=== PATIENT | male | born 1950 | race Caucasian/White ===

== ENCOUNTER 2022-01-06 10:16 | Day surgery (SDC) | payer MEDICARE, OTHER ==
[2021-12-30 14:41] LABS: BASOPHILS % (AUTO) 0.2 % (0-1); EOSINOPHILS # (AUTO) 0.3 X10'3 (0-0.9); EOSINOPHILS % (AUTO) 2.7 % (0-6); LYMPHOCYTES # (AUTO) 2.2 X10'3 (1.1-4.8); LYMPHOCYTES % (AUTO) 23.4 % (21-51); MEAN CORPUSCULAR HEMOGLOBIN 31.7 PG (27.0-31.0); MEAN CORPUSCULAR HGB CONC 33.2 g/dL (33.0-36.5); MEAN CORPUSCULAR VOLUME 95.5 FL (78-98); MEAN PLATELET VOLUME 7.1 FL (7.4-10.4); MONOCYTES # (AUTO) 0.7 X10'3 (0-0.9); MONOCYTES % (AUTO) 8.1 % (2-12); NEUTROPHILS % (AUTO) 65.6 % (42-75); PRE OP HEMATOCRIT 40.9 % (42.0-52.0); PRE OP HEMOGLOBIN 13.6 g/dL (14.0-17.9); PRE OP PLATELET COUNT 318 X10'3 (140-440); RED BLOOD COUNT 4.29 X10'6 (4.70-6.10); RED CELL DISTRIBUTION WIDTH 13.6 % (11.5-14.5)
[2021-12-30 14:48] LABS: ALBUMIN 3.4 G/DL (3.4-5.0); ALBUMIN/GLOBULIN RATIO 0.9 (1.1-1.5); ALKALINE PHOSPHATASE 69 IU/L (46-116); BLOOD UREA NITROGEN 20 MG/DL (7-18); BUN/CREATININE RATIO 26.3 (5.4-32.0); CHLORIDE 105 MMOL/L (99-107); CREATININE 0.76 MG/DL (0.60-1.10); PRE OP ALT 34 U/L (30-65); PRE OP ANION GAP 8 (8-16); PRE OP AST 25 U/L (10-37); PRE OP BILIRUB, TOTAL 0.5 MG/DL (0.0-1.0); PRE OP GLUCOSE 101 MG/DL (70-104); PRE OP POTASSIUM 4.1 MMOL/L (3.4-5.1); PRE OP SODIUM 142 MMOL/L (135-145); TOTAL CARBON DIOXIDE 29.5 MMOL/L (24-32); TOTAL PROTEIN 7.4 G/DL (6.4-8.2); eGFR > 90 ML/MIN
[2022-01-06] VITALS (13 sets, daily range): BP systolic 97–123; BP diastolic 56–77
[~2022-01-06] VITALS: Ht 152.4 cm; Wt 8.0 kg
[~2022-01-06 10:16] MED LIST: ATOR20TA66 PO; PANT40TA54 PO; ceFAZolin inj. 2,000 MG in dextrose 5%-water 100 ML IV ONE; famotidine 20mg tablet PO ONE; ringers solution, lacted 1,000 ML IV SCH
[2022-01-06] MEDS ORDERED: meperidine/PF 25mg/ml syringe IV PRN ×2 (10:55)
[2022-01-06] MEDS ORDERED: ringers solution, lacted 1,000 ML IV SCH (10:55)
[2022-01-06] MEDS ORDERED: fentaNYL/PF 50MCG/1 ML 2ML syringe IV PRN ×2 (10:55)
[2022-01-06] MEDS ORDERED: labetalol 20mg/4ml (5mg/ml) syringe IV PRN (10:55)
[2022-01-06] MEDS ORDERED: ondansetron/PF 4mg/2ml inj IV PRN (10:55)
[2022-01-06] MEDS ORDERED: hydrALAZINE 20mg/ml inj. IV PRN (10:55)
[2022-01-06] MEDS ORDERED: LIDOcaine 1% 30ml preserv. free vial ONE (12:16)
[2022-01-06] MEDS ORDERED: BUPIVAcaine/PF 7.5mg/ml (0.75%) 10ml vial ONE (12:16)
[2022-01-06] MEDS ORDERED: midazolam 1 mg/ML 2ml injection ONE (12:21)
[2022-01-06] MEDS ORDERED: fentaNYL/PF 50MCG/1 ML 2ML syringe ONE (12:21)
[2022-01-06] MEDS ORDERED: rocuronium 10mg/ml inj IV ONE (12:35)
[2022-01-06] MEDS ORDERED: ondansetron/PF 4mg/2ml inj ONE (12:35)
[2022-01-06] MEDS ORDERED: propofol inj 20 ML IV ONE (12:35)
[2022-01-06] MEDS ORDERED: LIDOcaine 1%/PF 5ML 10 MG/ML VIAL ONE (12:35)
[2022-01-06] MEDS ORDERED: glycopyrrolate 0.2mg/ml inj ONE (12:37)
[2022-01-06] MEDS ORDERED: ketorolac trometh. 30mg/ml inj. ONE (13:34)
--- NOTE | 2022-01-06 13:50 | NUR ---
Received from OR via [facility], accompanied by Anesthesiologist NELLIE and report given by Anesthesiolgist. PT IS GROGGY BUT REPSONDS TO VERBAL STIMULI AND MOVES ALL EXTREMITIES FREELY. PT PLACED ON BEDSIDE MONITOR, VSS. PT IS SB WITH RATEIN MID TO HIGH 50'S. PT ARRIVED RECIEVING 10L O2 TO MASK, TOLERATING WELL AND WILL TITIRATE DOWN PT TOLERATES. PT HAS BANDAGES TO ABD THAT ARE CDI. PT HAS 20G PIV TO RT WRIST/LOW FA WITH LR INUSING ORDERED. PT STATES MILD PAIN AT THIS TIME NOT REQUIRING PAIN MEDICATION. WILL CONTINUE TO ASSESS.
[2022-01-06] MEDS ORDERED: HYDROcodone/acetaminophen 5mg/325mg tablet PO PRN (13:55)
--- NOTE | 2022-01-06 14:15 | NUR ---
ALL DISCHARGE CRITERIA HAS BEEN MET, PT IS DRESSED AND IN WHEELCHAIR WAITING FOR RIDE. RIDE STATES THEY NEEDED TO GET GAS BEFORE PICKING PATIENT UP AND WILL CALL WHEN THEY ARE ALMOST HERE. PT IS COMFORTABLE, DENIES PAIN AT THIS TIME.
--- NOTE | 2022-01-06 16:35 | NUR ---
ALL DISCHARGE CRITERIA HAS BEEN MET. VSS, PAIN AT A TOLERABLE LEVEL, VOIDING AND ABLE TO SAFELY AMBULATE AND TRANSFER SELF. IV TAKEN OUT WITHOUT ANY COMPLICATIONS. ALL DISCHARGE INSTRUCTIONS COVERED WITH PATIENT AND ALL QUESTIONS ANSWERED. PATIENT TAKEN OUT VIA WHEELCHAIR TO PERSONAL VEHICLE WHERE DROVE PATIENT HOME.
== END 2022-01-06 16:14 | disposition home or self-care (01) ==
LOC: PAS 10:16
PROVIDERS: ATTEND Surgery
DX: K40.90 Unilateral inguinal hernia, without obstruction or gangrene, not specified as recurrent (principal); Z88.6 Allergy status to analgesic agent; Z79.899 Other long term (current) drug therapy; Z98.890 Other specified postprocedural states
CPT/HCPCS: 36415; 49650; 49659; 80053; 82948; 85025; 93005; C1781; J0690; J1885; J2250; J2405; J2704; J3010; J3490; J7030; J7060; J7120; Z7506; Z7508; Z7512; A4215; A4615; A4618